=== PATIENT | female | born 1960 | race Caucasian/White ===

== ENCOUNTER 2018-07-16 10:02 | Inpatient (IN) | payer OTHER ==
[~2018-07-16] VITALS: Ht 172.7 cm; Wt 134.7 kg
[~2018-07-16 10:02] MED LIST: CLARITIN10 M1; CODE1TAB37 PO; GLIPIZIDE10 MG PO; METFORMIN HCL500 MG PO; PERCOCET 5/3251 TAB PO; PROVERA2.5 MG PO
[2018-07-16] MEDS ORDERED: SINGULAIR 5MG5 MG (10:25)
--- NOTE | 2018-07-16 10:25 | NUR ---
PACIENTE REFIRWE DOLOR ABDOMINAL Y REFIERE VOMITOS DESDE SAHARA .
--- NOTE | 2018-07-16 11:11 | NUR ---
SE ORIENTA A PTE SOBRE PROCESO DE VENOPUNCION, PORSHA DE MUESTRAS, ADMINISTRACION DE MED. PTE REFIERE ENTENDER INF PATTY POR RN DE GUILLERMOO. PTE SE MANTIENE BAJO OBSERVACION RECIBIENDO TRATAMIENTO MEDICO.
[2018-08-01] MEDS ORDERED: LOSARTAN POTASS50 MG PO (15:12)
== END 2018-08-01 14:58 | disposition home or self-care (01) | DRG 354 ==
LOC: ER 10:02 → SURH 21:44
PROVIDERS: ADMIT Surgery
PROC: BW21ZZZ Computerized Tomography (CT Scan) of Abdomen and Pelvis (ICD-10-PCS; 2018-07-16)
PROC: 0WQF0ZZ Repair Abdominal Wall, Open Approach (ICD-10-PCS; principal; 2018-07-17 15:00)
PROC: 0WJH0ZZ Inspection of Retroperitoneum, Open Approach (ICD-10-PCS; 2018-07-19)
PROC: 3E0F7GC Introduction of Other Therapeutic Substance into Respiratory Tract, Via Natural or Artificial Opening (ICD-10-PCS; 2018-07-19)
PROC: 0W9F30Z Drainage of Abdominal Wall with Drainage Device, Percutaneous Approach (ICD-10-PCS; 2018-07-26)
PROC: B54MZZZ Ultrasonography of Right Upper Extremity Veins (ICD-10-PCS; 2018-07-29)
DX: K43.6 Other and unspecified ventral hernia with obstruction, without gangrene (principal); K56.690 Other partial intestinal obstruction; R18.8 Other ascites; D72.828 Other elevated white blood cell count; D50.8 Other iron deficiency anemias; N73.6 Female pelvic peritoneal adhesions (postinfective); E11.9 Type 2 diabetes mellitus without complications; I10 Essential (primary) hypertension; J45.998 Other asthma; E66.01 Morbid (severe) obesity due to excess calories; Z90.49 Acquired absence of other specified parts of digestive tract